=== PATIENT | male | born 1970 | race African-American/Black ===

== ENCOUNTER → 2017-03-12 | Outpatient (CLI) | payer OTHER ==
[~2017-03-12] MED LIST: ISOVUE-370 76% 100ML VIAL (Q9967) As Ordered ONE
--- NOTE | 2017-03-12 10:11 | REP ---
CT HEAD WITHOUT AND WITH CONTRAST: HISTORY: Headache. CONTRAST: Isovue 370, 75 mL. There is no intraparenchymal hemorrhage, mass or midline shift. There is no abnormal enhancement. The ventricular system is normal in appearance. There is no extracerebral collection. The visualized sinuses are clear. IMPRESSION: There is no intracranial lesion. Signed by Kun Adhikari MD 03/12/2017 10:18 A
== END ==
LOC: M RAD 08:57 → EDUNIT# 09:00
PROVIDERS: ATTEND Thoracic Surgery (Cardiothoracic Vascular Surgery)
DX: R51 Headache (principal); H57.12 Ocular pain, left eye
CPT/HCPCS: 70470; Q9967